=== PATIENT | female | born 1955 | race Caucasian/White ===

== ENCOUNTER → 2025-07-25 | Outpatient (REF) | payer OTHER, MEDICARE, BC | LOC: M CFLAB 15:26 | DX: Z11.2 Encounter for screening for other bacterial diseases (principal) ==

== ENCOUNTER → 2025-10-16 | Day surgery (SDC) | payer MEDICARE, BC ==
[~2025-10-16] VITALS: Ht 162.6 cm; Wt 56.7 kg
[~2025-10-16] MED LIST: CEFUROXIME 1 MG/0.1 ML INTRACAMERAL INJ As Ordered ONE; CYCLOPENTOLATE 1% OPHTH SOLN 2 ML BTL OS SCH; FLURBIPROFEN 0.03% OPHTH SOLN 2.5 ML OS SCH; LIDOCAINE 1% SDV 5 ML VIAL As Ordered ONE; LR 1,000 ML IV SCH; METH-1164 PO; MIDAZOLAM INJ 2 MG/2 ML VIAL As Ordered ONE; MULTTAB61 PO; OMEG-23 PO; OMEG10002 PO; PHENYLEPHRINE 2.5% OPHTH SOL 2ML OS SCH; RALO1TAB PO; SUMA100T2 PO; TETRACAINE 0.5% OPHTH SOLN 4ML OS SCH; TRAM50TA2 PO; VITA100093 PO
== END | disposition home or self-care (01) ==
LOC: M SDC 11:12
PROVIDERS: ATTEND Ophthalmology
DX: H25.12 Age-related nuclear cataract, left eye (principal); Z53.9 Procedure and treatment not carried out, unspecified reason

== ENCOUNTER 2025-10-23 11:12 | Day surgery (SDC) | payer MEDICARE, BC ==
[~2025-10-23] VITALS: Ht 162.6 cm; Wt 52.3 kg
[~2025-10-23 11:12] MED LIST changes: -CEFUROXIME 1 MG/0.1 ML INTRACAMERAL INJ As Ordered ONE; -LIDOCAINE 1% SDV 5 ML VIAL As Ordered ONE; -MIDAZOLAM INJ 2 MG/2 ML VIAL As Ordered ONE
[2025-10-23] MEDS ORDERED: MIDAZOLAM INJ 2 MG/2 ML VIAL As Ordered ONE (14:45)
[2025-10-23] MEDS: CEFUROXIME 1 MG/0.1 ML INTRACAMERAL INJ As Ordered ONE (15:10)
[2025-10-23] MEDS: LIDOCAINE 1% SDV 5 ML VIAL As Ordered ONE (15:10)
[2025-10-23 15:45] VITALS: BP 148/67; TEMP 97.9; O2SAT 98
== END 2025-10-23 16:10 | disposition home or self-care (01) ==
LOC: M SDC 11:12
PROVIDERS: ATTEND Ophthalmology
DX: H25.12 Age-related nuclear cataract, left eye (principal); G43.909 Migraine, unspecified, not intractable, without status migrainosus; M81.0 Age-related osteoporosis without current pathological fracture; Z79.899 Other long term (current) drug therapy
CPT/HCPCS: 66984; J0697; J2250; J3010; V2788